=== PATIENT | male | born 1980 | race Caucasian/White ===

== ENCOUNTER → 2018-04-03 | Outpatient (CLI) | payer OTHER ==
[~2018-04-03] MED LIST: CONRAY-43 43% 50ML VIAL (Q9960) As Ordered; LIDOCAINE 1% MDV 20ML VIAL As Ordered; TRIAMCINOLONE ACETONIDE SUSP 40 MG/ML VIAL (J3301) As Ordered
== END ==
LOC: M RADPRO 10:01
DX: M16.11 Unilateral primary osteoarthritis, right hip (principal)
CPT/HCPCS: 20610

== ENCOUNTER → 2020-09-22 | Outpatient (CLI) | payer SELFPAY | LOC: M LABSMTC 17:29 | PROVIDERS: ATTEND Pediatrics | DX: Z11.59 Encounter for screening for other viral diseases (principal) ==

== ENCOUNTER → 2021-03-24 | Outpatient (CLI) | payer OTHER ==
--- NOTE | 2021-03-25 05:02 | REP ---
INDICATION: PAIN IN LT HIP. COMPARISON: None. TECHNIQUE: Two frontal views of the pelvis. FINDINGS: Left hip demonstrates periarticular sclerosis with joint space narrowing. Very subtle subchondral cystic changes to the femoral head are suspected. No obvious loose bodies are identified. No acute fracture or dislocation. IMPRESSION: Moderate/early advanced osteoarthritic degenerative changes. <Electronically signed by Frankie Beckman > 03/25/21 [id number]
== END ==
LOC: M SOG 15:20
PROVIDERS: ATTEND Orthopaedic Surgery Adult Reconstructive Orthopaedic Surgery
DX: M25.552 Pain in left hip (principal); M16.12 Unilateral primary osteoarthritis, left hip; M25.562 Pain in left knee

== ENCOUNTER 2021-04-24 11:48 | Emergency (ER) | payer OTHER ==
[~2021-04-24] VITALS: Ht 185.4 cm; Wt 100.0 kg
[2021-04-24] MEDS ORDERED: FAMO-142 PO (11:57)
[2021-04-24] MEDS ORDERED: BAYE500T2 PO (11:57)
--- NOTE | 2021-04-24 13:57 | REP ---
INDICATION: L achilles pain COMPARISON: None. TECHNIQUE: AP and lateral left tibia/fibula FINDINGS: The osseous structures and joint spaces are intact and normal. There is no evidence for acute fracture or dislocation. Surrounding soft tissues are unremarkable. No subcutaneous emphysema or radiodense foreign body. IMPRESSION: . No acute fracture or dislocation. <Electronically signed by Frankie Beckman > 04/24/21 [id number]
--- NOTE | 2021-04-24 15:02 | REP ---
INDICATION: r/o dvt LLE COMPARISON: None. TECHNIQUE: Block scale and color Doppler evaluation using linear high frequency transducer. FINDINGS: Ultrasound examination of the left lower extremity deep venous structures from the common femoral vein through the calf/ankle to include the peroneal, and tibial veins demonstrates normal compressibility flow and wave patterns in response to respiration and augmentation. There is no evidence for deep venous thrombosis. Contralateral CFV is patent and normal. IMPRESSION: No evidence for deep venous thrombosis. <Electronically signed by Frankie Beckman > 04/24/21 [id number]
--- NOTE | 2021-04-24 15:06 | REP ---
INDICATION: r/o achilles injury COMPARISON: None TECHNIQUE: Real time montoya scale ultrasound examination using linear high-frequency transducer. FINDINGS: Directed ultrasound examination of the left Achilles tendon demonstrates a somewhat anechoic elongated area within the mid Achilles tendon underlying the point of maximal tenderness. This is nonspecific but may reflect a partial tear. Contralateral right Achilles tendon appears normal and shows no similar abnormality. IMPRESSION: Ultrasound examination demonstrates a vague nonspecific anechoic ovoid area within the mid left Achilles tendon. Findings may represent tear and should be correlated with history/mechanism of injury. <Electronically signed by Frankie Beckman > 04/24/21 0000
[2021-04-24 16:51] VITALS: BP 135/80
== END 2021-04-24 17:06 | disposition home or self-care (01) ==
LOC: M ED 11:48
DX: S86.012A Strain of left Achilles tendon, initial encounter (principal); W10.8XXA Fall (on) (from) other stairs and steps, initial encounter; Y92.009 Unspecified place in unspecified non-institutional (private) residence as the place of occurrence of the external cause; Y93.9 Activity, unspecified; Y99.9 Unspecified external cause status